=== PATIENT | female | born 1965 | race Caucasian/White ===

== ENCOUNTER 2017-08-03 14:42 | Emergency (ER) | payer MEDICAID ==
[2017-08-03] MEDS ORDERED: ONDANSETRON HCL IV 4 MG/2 ML VIAL IV ONE (15:00)
[2017-08-03] MEDS ORDERED: 0.9 % SODIUM CHLORIDE 1,000 ML BAG IV ONE ×2 (15:00→16:32)
--- NOTE | 2017-08-03 15:01 | Emergency Department Record ---
History of Present Illness - General Chief complaint: Nausea, Vomiting, Diarrhea Stated complaint: DEHYDRATION Time Seen by Provider: 08/03/17 15:00 Source: Patient Mode of Arrival: Ambulatory - History of Present Illness Initial comments: The patient states she has been vomiting and having nonbloody diarrhea for the past 4 days. She is thirsty and is urinating less than usual. She also hurts in her epigastrum and has clear rhinorrhea without fevers or chills. MD complaint: Abdominal pain, Diarrhea, Nausea, Vomiting Onset/Timin -: Days(s) Associated Abdominal Pain: Yes Location: Diffuse Radiation: Back Severity: Moderate Severity scale (1-10): 10 Quality: Aching Associated Symptoms: Nausea/vomiting - Related Data Previous Rx's Medication Instructions Recorded Naproxen [Naprosyn] 500 mg PO Q12H #20 tab. 01/29/16 Ondansetron [Zofran Odt] 4 mg PO Q8H #10 [email or web address] 08/03/17 Allergies Allergy/AdvReac Type Severity Reaction Status Date / Time codeine Allergy RASH Verified 08/03/17 15:55 hydrocodone bitartrate Allergy RASH Verified 08/03/17 15:55 [From Vicodin] Travel Screening - Travel/Exposure Within Last 30 Days Have you traveled within the last 30 days?: No - Travel/Exposure Within Last Year Have you traveled outside the [place] in the last year?: No - Additonal Travel Details Have you been exposed to anyone with a communicable illness?: No - Travel Symptoms Symptom Screening: Joint & Muscle Aches Review of Systems Reviewed: No additional complaints except as noted below Constitutional: Reports: As per HPI. Denies: Chills, Fever, Malaise, Night sweats, Weakness, Weight change Eyes: Reports: As per HPI. Denies: Eye discharge, Eye pain, Photophobia, Vision change ENT: Reports: As per HPI. Denies: Congestion, Dental pain, Ear pain, Epistaxis , Hearing loss, Throat pain Respiratory: Reports: As per HPI. Denies: Cough, Dyspnea, Hemoptysis, Stridor, Wheezes Cardiovascular: Reports: As per HPI. Denies: Arrhythmia, Chest pain, Dyspnea on exertion, Edema, Murmurs, Orthopnea, Palpitations, Paroxysmal nocturnal dyspnea, Rheumatic Fever, Syncope Endocrine: Reports: As per HPI. Denies: Fatigue, Heat or cold intolerance, Polydipsia, Polyuria Gastrointestinal: Reports: As per HPI. Denies: Abdominal pain, Constipation, Diarrhea, Hematemesis, Hematochezia, Melena, Nausea, Vomiting Genitourinary: Reports: As per HPI. Denies: Abnormal menses, Discharge, Dyspareunia, Dysuria, Frequency, Hematuria, Incontinence, Retention, Urgency Musculoskeletal: Reports: As per HPI. Denies: Arthralgia, Back pain, Gout, Joint swelling, Myalgia, Neck pain Skin: Reports: As per HPI. Denies: Bruising, Change in color, Change in hair/ nails, Lesions, Pruritus, Rash Neurological: Reports: As per HPI. Denies: Abnormal gait, Confusion, Headache, Numbness, Paresthesias, Seizure, Tingling, Tremors, Vertigo, Weakness Psychiatric: Reports: As per HPI. Denies: Anxiety, Auditory hallucinations, Depression, Homicidal thoughts, Suicidal thoughts, Visual hallucinations Hematological/Lymphatic: Reports: As per HPI. Denies: Anemia, Blood Clots, Easy bleeding, Easy bruising, Swollen glands Past Medical History - SOCIAL HISTORY Smoking Status: Current every day smoker Alcohol Use: Occasional Drug Use: None - RESPIRATORY Hx Respiratory Disorders: No - CARDIOVASCULAR Hx Cardio Disorders: Yes Hx Hypertension: Yes - NEURO Hx Neuro Disorders: Yes Hx Neuropathy: Yes - GI Hx GI Disorders: No - Hx Genitourinary Disorders: No - ENDOCRINE Hx Endocrine Disorders: No - MUSCULOSKELETAL Hx Musculoskeletal Disorders: No - PSYCH Hx Psych Problems: No - HEMATOLOGY/ONCOLOGY Hx Hematology/Oncology Disorders: No Family Medical History Any Significant Family History?: No Hx Cancer: Grandparents Physical Exam - General General Appearance: Alert, Oriented x3, Cooperative, No acute distress - Head Head exam: Normal inspection - Eye Eye exam: Normal appearance, PERRL Pupils: Normal accommodation - ENT ENT exam: Normal exam, Mucous membranes dry, Normal external ear exam, Normal orophraynx, TM's normal bilaterally Ear exam: Normal external inspection. negative: External canal tenderness Nasal Exam: Normal inspection. negative: Discharge, Sinus tenderness Mouth exam: Normal external inspection, Tongue normal Teeth exam: Normal inspection. negative: Dental caries Throat exam: Normal inspection. negative: Tonsillar erythema, Tonsillar exudate - Neck Neck exam: Normal inspection, Full ROM. negative: Tenderness - Respiratory Respiratory exam: Normal lung sounds bilaterally. negative: Respiratory distress - Cardiovascular Cardiovascular Exam: Regular rate, Normal rhythm, Normal heart sounds - GI/Abdominal GI/Abdominal exam: Soft, Normal bowel sounds, Tenderness (epigastric tenderness on palpation). negative: Distended, Guarding - Rectal Rectal exam: Deferred - exam: Deferred - Extremities Extremities exam: Normal inspection, Full ROM, Normal capillary refill. negative: Calf tenderness, Pedal edema, Tenderness - Back Back exam: Reports: Normal inspection, Full ROM. Denies: CVA tenderness (R), CVA tenderness (L), Muscle spasm, Rash noted, Tenderness - Neurological Neurological exam: Alert, CN II-XII intact, Normal gait, Oriented X3, Reflexes normal - Psychiatric Psychiatric exam: Normal affect, Normal mood - Skin Skin exam: Dry, Intact, Normal color, Warm Course Vital Signs 08/03/17 14:52 Temperature 98 F Pulse Rate 80 Respiratory 18 Rate Blood Pressure 133/83 Pulse Ox 95 - Reevaluation(s) Reevaluation #1: The patient is feeling much better. Her discomfort in her epigastrum has improved. All results explained and questions answered. 08/03/17 17:02 Medical Decision Making - Management Options MDM Management: No Additional Work-up Planned - Data Complexity MDM Data: Labs Ordered and/or Reviewed (WBC 2.9 otherwise normal; UA Negative except for S.G. > 1.030), X-Ray Ordered and/or Reviewed (Contrast Abd/Pelvix CT : No acute abnormality. Diverticulosis without "itis."), EKG Ordered and/or Reviewed - Lab Data Result diagrams: 08/03/17 15:27 08/03/17 16:06 - EKG Data -: EKG Interpreted by Ri EKG: Normal EKG, Unchanged From Previous Disposition Disposition: Discharge Clinical Impression: Nausea vomiting and diarrhea, Dehydration Disposition: Home, Self-Care Condition: (1) Good Instructions: Acute Nausea and Vomiting (ED), Abdominal Pain (ED) Additional Instructions: Clear liquids and push fluids. Zofran as directed if needed for nausea or vomiting. Follow up with PCP in office next week. Prescriptions: Ondansetron [Zofran Odt] 4 mg PO Q8H #10 tab.rapdis Forms: Patient Portal Access Quality - Quality Measures Quality Measures: N/A - Blood Pressure Screening Does Patient Have Any of the Following: No Blood Pressure Classification: Pre-Hypertensive BP Reading Systolic Measurement: 133 Diastolic Measurement: 83 Screening for High Blood Pressure: < Pre-Hypertensive BP, F/U Documented > [ G8950] Pre-Hypertensive Follow-up Interventions: Follow-up with rescreen every year.
[2017-08-03 15:40] LABS: BASO % 0.3 % (0-6); GRAN % 46.8 % (47-80); HEMATOCRIT 39.4 % (35.0-47.0); HEMOGLOBIN 13.3 gm/dl (11.6-16.0); LYMPH % 41.2 % (16-45); MEAN CELL VOLUME 86.4 fl (81-97); MEAN CORPUSCULAR HEMOGLOBIN 29.2 pg (27-33); MEAN CORPUSCULAR HGB CONC 33.8 g/dl (32-36); MEAN PLATELET VOLUME 10.5 fl (7.4-10.4); MONO % 10.7 % (0-9); PLATELET COUNT 163 K/uL (130-400); RED BLOOD COUNT 4.56 M/uL (3.80-5.40); RED CELL DISTRIBUTION WIDTH 13.6 % (11.5-14.5); WHITE BLOOD COUNT W/O DIFF 2.9 K/uL (4.2-12.2)
[2017-08-03 15:59] LABS: URINE APPEARANCE CLEAR; URINE BILIRUBIN NEGATIVE (NEGATIVE); URINE BLOOD NEGATIVE (NEGATIVE); URINE COLOR YELLOW; URINE GLUCOSE (UA) NEGATIVE (NEGATIVE); URINE KETONE NEGATIVE (NEGATIVE); URINE LEUKOCYTE ESTERASE NEGATIVE (NEGATIVE); URINE NITRITE NEGATIVE (NEGATIVE); URINE PROTEIN NEGATIVE (NEGATIVE); URINE UROBILINOGEN 0.2 E.U./dL (0.20 - 1.00)
[2017-08-03 16:19] LABS: ALB/GLOB RATIO 1.3 (1.1-1.8); ALBUMIN 4.1 g/dL (4.0-5.0); ALKALINE PHOSPHATASE 78 U/L (35-104); ALT/SGPT 24 U/L (<33); AST/SGOT 26 U/L (10.0-35.0); BLOOD UREA NITROGEN 11 mg/dL (6-20); CREATININE 0.7 mg/dL (0.5-0.9); EST GLOMERULAR FILTRATION RATE > 60 mL/min; GLUCOSE,RANDOM 93 mg/dL (74-109); TOTAL PROTEIN 7.2 g/dL (6.6-8.7)
[2017-08-03] MEDS ORDERED: KETOROLAC 30 MG/ML VIAL IVP ONE (16:31)
[2017-08-03] MEDS ORDERED: FAMOTIDINE IV 20 MG/2 ML VIAL IVP ONE (16:57)
--- NOTE | 2017-08-03 23:10 | CT SCAN REPORT ---
EXAM: CT SCAN ABDOMEN/PELVIS W CONTRAST HISTORY: ABDOMINAL PAIN. TECHNIQUE: CT of the abdomen and pelvis performed following intravenous contrast administration. 100 mL of Omnipaque-300 contrast are used for this examination. COMPARISON: 11/03/2014. FINDINGS: There are calcified nodules at the lung bases, likely due to old granulomatous disease. The liver and spleen are unremarkable. No pancreatic mass or inflammatory change. The bile ducts are not dilated. There are no calcified gallstones. The gallbladder is surgically absent. There is a small left adrenal nodule measuring about 1.5 cm in size, unchanged. Adrenal glands otherwise are unremarkable. There is no aortic aneurysm. No periaortic mass or adenopathy. There is bilateral renal function. There is no renal mass or hydronephrosis. There is a small left renal cyst present, unchanged. There are no dilated bowel loops. No pelvic mass, abscess, or adenopathy. There is no free air or free fluid identified. There is diverticulosis in the sigmoid colon. There is no CT evidence for diverticulitis. The uterus is surgically absent. The appendix is unremarkable. IMPRESSION: 1. NO ACUTE ABDOMINAL OR PELVIC PROCESS IDENTIFIED. 2. OLD GRANULOMATOUS CHANGES. 3. LEFT ADRENAL ADENOMA, UNCHANGED. 4. SMALL CYST IN THE SUPERIOR POLE OF THE LEFT KIDNEY. 5. PRIOR CHOLECYSTECTOMY AND HYSTERECTOMY. JOB NUMBER: [id number] [facility]
== END 2017-08-03 18:13 | disposition home or self-care (01) ==
LOC: ER 14:42
DX: E86.0 Dehydration (principal); R19.7 Diarrhea, unspecified; R11.2 Nausea with vomiting, unspecified
CPT/HCPCS: 74177; 80053; 81003; 83690; 85025; 93005; 93010; 96361; 96374; 96375; 99284; J1885; J2405; J3490; J7030

== ENCOUNTER 2017-11-03 14:59 | Emergency (ER) | payer MEDICAID ==
[2017-11-03] MEDS ORDERED: METHYLPREDNISOLONE 40MG/VIAL IM ONE (15:06)
[2017-11-03] MEDS ORDERED: KETOROLAC 30 MG/ML VIAL IM ONE (15:06)
[2017-11-03] MEDS ORDERED: METHYLPREDNISOLONE 80MG/VIAL IM ONE (15:11)
--- NOTE | 2017-11-03 15:11 | Emergency Department Record ---
History of Present Illness - General Chief Complaint: Flank Pain Stated Complaint: RIDE SIDE BACK PAIN Time Seen by Provider: 11/03/17 15:06 Source: Patient, Family Mode of Arrival: Ambulatory Limitations: No limitations - History of Present Illness Initial Comments: 52 yo female presents with lumbar pain that radiates to the right leg. The onset was about one week ago. No dysuria or incontinence. No hematuria. No weakness or numbness. The pain radiates to the right leg to the level of the knee. It does not seem to go beyond the knee. No weakness of the RLE. NO numbness. Raising her leg up causes pain in the back to the leg. NO abdominal pain. No fevers. PCP is at [facility] in [place]. The patient was seen in [facility]. She had a normal UA. She was treated with marilin and sima CURRIE Complaint: Back pain -: Week(s) (1) Place: Home Radiation: Right leg Severity: Moderate Quality: Aching, Sharp Consistency: Constant Improves With: Immobilization Worsens With: Movement Context: Other (No specific injury) Associated Symptoms: Cough (chronic cough from COPD) - Related Data Previous Rx's Medication Instructions Recorded Diazepam [Valium] 5 mg PO Q8H #10 tab 11/03/17 Methylprednisolone [Medrol Dose 0 mg PO UD #1 tab.ds.pk 11/03/17 Pack] Allergies Allergy/AdvReac Type Severity Reaction Status Date / Time codeine Allergy RASH Unverified 11/01/17 16:26 hydrocodone bitartrate Allergy RASH Unverified 11/01/17 16:26 [From Vicodin] Review of Systems Constitutional: Denies: Chills, Fever, Malaise, Weakness Eyes: Denies: Eye discharge ENT: Denies: Congestion, Throat pain Respiratory: Denies: Cough, Dyspnea Cardiovascular: Denies: Chest pain, Syncope Endocrine: Denies: Fatigue Gastrointestinal: Denies: Abdominal pain, Diarrhea, Nausea, Vomiting Genitourinary: Denies: Dysuria, Hematuria, Incontinence, Retention, Urgency Musculoskeletal: Reports: Back pain, Myalgia. Denies: Arthralgia, Joint swelling, Neck pain Skin: Denies: Bruising, Change in color, Rash Neurological: Denies: Abnormal gait, Confusion, Headache, Numbness, Tingling, Vertigo, Weakness Psychiatric: Denies: Anxiety Hematological/Lymphatic: Denies: Blood Clots, Easy bleeding, Easy bruising, Swollen glands Past Medical History - SOCIAL HISTORY Smoking Status: Current every day smoker Drug Use: None - RESPIRATORY Hx Respiratory Disorders: No - CARDIOVASCULAR Hx Cardio Disorders: Yes Hx Hypertension: Yes - NEURO Hx Neuro Disorders: Yes Hx Neuropathy: Yes - GI Hx GI Disorders: No - Hx Genitourinary Disorders: No - ENDOCRINE Hx Endocrine Disorders: No - MUSCULOSKELETAL Hx Musculoskeletal Disorders: No - PSYCH Hx Psych Problems: No - HEMATOLOGY/ONCOLOGY Hx Hematology/Oncology Disorders: No Family Medical History Hx Cancer: Grandparents Physical Exam - General General Appearance: Alert, Oriented x3, Cooperative, No acute distress Limitations: No limitations - Head Head exam: Atraumatic, Normal inspection - Eye Eye exam: Normal appearance, PERRL. negative: Conjunctival injection, Scleral icterus - ENT ENT exam: Normal exam, Mucous membranes moist Ear exam: Normal external inspection Nasal Exam: Normal inspection Mouth exam: Normal external inspection - Neck Neck exam: Normal inspection - Respiratory Respiratory exam: Normal lung sounds bilaterally. negative: Respiratory distress - Cardiovascular Cardiovascular Exam: Regular rate, Normal rhythm, Normal heart sounds - GI/Abdominal GI/Abdominal exam: Soft. negative: Distended, Guarding, Rebound, Tenderness - Rectal Rectal exam: Deferred - exam: Deferred - Extremities Extremities exam: Normal inspection, Full ROM, Normal capillary refill. negative: Tenderness - Back Back exam: Reports: Normal inspection, CVA tenderness (R), Paraspinal tenderness , Tenderness, Vertebral tenderness. Denies: Rash noted Image of Body Front/Back: 1 - tender from the mid lower lumbar to the buttocks, no rash. She states she has pain in the leg with raising leg, no edema, foot flexion and extension are intact, quads intact. Sensation is grossly intact to the right leg. - Neurological Neurological exam: Alert, Normal gait, Oriented X3, Reflexes normal (symmetric + 2 bilateral patellar and achilles). negative: Abnormal gait, Altered, Motor sensory deficit - Psychiatric Psychiatric exam: Normal affect, Normal mood. negative: Agitated, Anxious - Skin Skin exam: Dry, Intact, Normal color, Warm Course - Reevaluation(s) Reevaluation #1: 11/03/17 15:54 The XR was reviewed by me My preliminary read is multilevel degenerative changes with some spurring. I discussed this with the patient. I recommend close follow up with the PCP as she may need further work up if the pain does not resolve. Disposition Disposition: Discharge Clinical Impression: Sciatica Qualifiers: Laterality: right Qualified Code(s): M54.31 - Sciatica, right side Disposition: Home, Self-Care Condition: (1) Good Instructions: Sciatica (ED) Additional Instructions: Call your doctor on Sunday If your pain continues you may need further work up of the back pain that goes down your right leg Be seen immediately if you develop weakness, numbness, changes in your bladder or bowel function like incontinence or can't go Prescriptions: Diazepam [Valium] 5 mg PO Q8H #10 tab Methylprednisolone [Medrol Dose Pack] 0 mg PO UD #1 tab.ds.pk Forms: Patient Portal Access Time of Disposition: 15:56 Quality - Quality Measures Quality Measures: N/A - Blood Pressure Screening Does Patient Have Any of the Following: Active Dx of HTN Blood Pressure Classification: Hypertensive Reading Systolic Measurement: 154 Diastolic Measurement: 95 Screening for High Blood Pressure: Patient Exclusion, Hx of HTN [G9744]
--- NOTE | 2017-11-03 19:10 | RADIOLOGY REPORT ---
EXAM: LUMBAR SPINE W/OBLIQUES HISTORY: LOW BACK PAIN WITH RADIATION TO THE RIGHT HIP AND LEG. TECHNIQUE: Five views of the lumbar spine were obtained. COMPARISON: Previous CT scan of the abdomen and pelvis dated 08/03/2017. FINDINGS: There are five lumbar vertebral segments. The lumbar intervertebral disc spaces and vertebral body heights are maintained. Mild endplate degenerative changes and mild to moderate facet arthropathy are present at multiple levels. There is no spondylolysis, spondylolisthesis, or acute compression fracture. There are mild arthritic changes within both hips, right greater than left. IMPRESSION: 1. MILD MULTILEVEL DEGENERATIVE DISEASE AND FACET ARTHROPATHY. 2. NO ACUTE LUMBAR SPINE PATHOLOGY. [facility]: [id number] [facility]
== END 2017-11-03 16:19 | disposition home or self-care (01) ==
LOC: ER 14:59
DX: M54.31 Sciatica, right side (principal); J44.9 Chronic obstructive pulmonary disease, unspecified; I10 Essential (primary) hypertension; F17.210 Nicotine dependence, cigarettes, uncomplicated
CPT/HCPCS: 99283; 96372; 99284; 72110; J1885; J1040